=== PATIENT | male | born 1970 | race Caucasian/White ===

== ENCOUNTER 2017-06-19 18:34 | Emergency (ER) | payer BC ==
[~2017-06-19] VITALS: Ht 182.9 cm; Wt 109.5 kg
[2017-06-19 18:39] VITALS: TEMP 37
[2017-06-19] MEDS ORDERED: LIDOCAINE/EPINEPHRINE 1% 20 ML VIAL ONE (18:48)
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
[2017-06-19 19:06] VITALS: Ht 182.9 cm; Wt 109.5 kg
[2017-06-19] MEDS ORDERED: SODIUM CHLORIDE 0.9% 1000ML 1,000 ML IV STA ×2 (19:13→19:49)
[2017-06-19] MEDS ORDERED: CEFAZOLIN IV 2,000 MG in SYRINGE 0 ML IV SCH (19:13)
[2017-06-19] MEDS ORDERED: CEFAZOLIN IV 2,000 MG in DEXTROSE 5% 50ML 50 ML IV STA (19:13)
[2017-06-19 19:30] LABS: MEAN CELL VOLUME 104.7 fL (80-100); MEAN CORPUSCULAR HEMOGLOBIN 37.2 pg (25-34); MEAN CORPUSCULAR HGB CONC 35.5 g/dl (32-36); PLATELET COUNT 329 K/uL (130-400); RED BLOOD COUNT 4.01 M/uL (4.7-6.1); WHITE BLOOD COUNT 17.63 K/uL (4.8-10.8)
[2017-06-19 19:36] LABS: ISTAT CREATININE 2.2 mg/dl (0.6-1.3); ISTAT HEMOGLOBIN 15.3 g/dl (14.0-18.0); ISTAT IONIZED CALCIUM 1.07 mmol/l (1.12-1.32)
[2017-06-19] MEDS ORDERED: BUPR-79 PO (19:40)
[2017-06-19] MEDS ORDERED: ALPR-411 PO (19:40)
[2017-06-19] MEDS ORDERED: LISI-787 PO (19:40)
[2017-06-19] MEDS ORDERED: ASPI81TA28 PO (19:40)
[2017-06-19 19:43] LABS: INR 1.1 (0.9-1.1); PARTIAL THROMBOPLASTIN RATIO 0.9; PROTHROMBIN TIME (PATIENT) 11.7 SECONDS (9.0-12.0)
[2017-06-19 19:49] LABS: BUN/CREATININE RATIO 5.4 (10-20); CALCIUM 8.6 mg/dl (8.5-10.1); CREATININE 2.06 mg/dl (0.60-1.40); POTASSIUM 3.4 mmol/L (3.5-5.1)
[2017-06-19] MEDS ORDERED: THIAMINE HCL 100 MG/ML 2 ML VIAL IV STA (19:49)
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
[2017-06-19 20:12] LABS: MAGNESIUM 1.6 mg/dl (1.8-2.4)
[2017-06-19 20:32] LABS: COMPLETE YES; EOSINOPHIL % 5.2 %; LYMPH ABS # 4.25 K/uL (1.2-3.4); LYMPHOCYTE % 24.1 %; NEUTROPHILS % 54.3 %; VARIANT LYM ABS # 2.13 K/uL; VARIANT LYMPHOCYTE % 12.1 %
[2017-06-19] MEDS ORDERED: MAGNESIUM SULFATE 1GM / D5W 1 GM BAG IV STA (20:32)
[2017-06-19] MEDS ORDERED: OPTIRAY 320 IV PRN (21:00)
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
[2017-06-19 22:24] LABS: ISTAT CREATININE 1.7 mg/dl (0.6-1.3); ISTAT HEMOGLOBIN 12.2 g/dl (14.0-18.0); ISTAT IONIZED CALCIUM 1.02 mmol/l (1.12-1.32)
[2017-06-19 22:28] VITALS: BP 132/78; PULSE 104; O2SAT 97
[2017-06-19] MEDS ORDERED: CEPHALEXIN 500MG HOME PACK 1 EA BTL PO ONE (22:45)
[2017-06-19] MEDS ORDERED: CEPH500C2 PO (22:47)
== END 2017-06-19 22:50 | disposition home or self-care (01) ==
LOC: EDBD 18:35 → C.EDB 18:35 → C.EDA 22:50
DX: S71.112A Laceration without foreign body, left thigh, initial encounter (principal); W26.0XXA Contact with knife, initial encounter; Y92.89 Other specified places as the place of occurrence of the external cause; I10 Essential (primary) hypertension; F17.210 Nicotine dependence, cigarettes, uncomplicated; Z79.82 Long term (current) use of aspirin; Z79.899 Other long term (current) drug therapy